=== PATIENT | female | born 1995 | race Caucasian/White ===

== ENCOUNTER 2017-06-21 06:18 | Emergency (ER) | END 2017-06-21 08:10 | disposition home or self-care (01) | DX: R06.4 Hyperventilation (principal); Z71.6 Tobacco abuse counseling; R11.0 Nausea; F41.8 Other specified anxiety disorders; E83.42 Hypomagnesemia; M15.0 Primary generalized (osteo)arthritis; I10 Essential (primary) hypertension; K21.9 Gastro-esophageal reflux disease without esophagitis; F17.210 Nicotine dependence, cigarettes, uncomplicated; Z79.899 Other long term (current) drug therapy | CPT/HCPCS: 36415; 74022; 80053; 80305; 82150; 83605; 83690; 83735; 84443; 84703; 85025; 85379; 96374; 99285; G0480; J2405; J7050 ==

== ENCOUNTER 2022-04-28 10:22 | Emergency (ER) | payer BC, MEDICAID ==
[2022-04-28 11:32] LABS: BENZODIAZEPINES SCREEN,URINE NEGATIVE (NEGATIVE); EDDP,URINE SCREEN NEGATIVE (NEGATIVE); TCA SCREEN,URINE NEGATIVE (NEGATIVE); THC SCREEN,URINE 50 NG/ML NEGATIVE (NEGATIVE)
[2022-04-28] MEDS ORDERED: Ketorolac 30 MG/ML SDV IM ONE (11:32)
[2022-04-28 11:50] LABS: BARBITURATE SCREEN,URINE NEGATIVE (NEGATIVE)
[2022-04-28 12:10] LABS: BUPRENORPHINE SCREEN,URINE NEGATIVE (NEGATIVE)
[2022-04-28] MEDS ORDERED: Acetaminophen 500 MG Tab PO ONE (12:14)
[2022-04-28 17:14] VITALS: BP 134/95; PULSE 70
== END 2022-04-28 13:50 | disposition home or self-care (01) ==
LOC: LL.ED 10:22
DX: S97.82XA Crushing injury of left foot, initial encounter (principal); I10 Essential (primary) hypertension; F17.210 Nicotine dependence, cigarettes, uncomplicated; E66.9 Obesity, unspecified; Z88.8 Allergy status to other drugs, medicaments and biological substances; Z68.31 Body mass index [BMI] 31.0-31.9, adult; W23.1XXA Caught, crushed, jammed, or pinched between stationary objects, initial encounter; Y99.0 Civilian activity done for income or pay
CPT/HCPCS: 73630-LT; 80305-QW; 96372; 99283; A9270-GY; J1885

== ENCOUNTER 2023-01-13 09:58 | Day surgery (SDC) | payer BC, OTHER ==
[~2023-01-13 09:58] MED LIST: Midazolam 1 MG/ML 2 ML SDV ONE; Propofol 200 MG/20 ML SDV ONE
[2023-01-13] MEDS ORDERED: Sodium Chloride 0.9% 10 ML Syringe FLUSH PRN (10:00)
[2023-01-13] MEDS ORDERED: Lactated Ringers 1,000 ML IV SCH (10:00)
[2023-01-13] MEDS ORDERED: Propofol 200 MG/20 ML SDV ONE (11:57)
[2023-01-13 13:44] VITALS: BP 124/83; PULSE 63
== END 2023-01-13 12:50 | disposition home or self-care (01) ==
LOC: LL.SDS 09:58
PROVIDERS: ATTEND Surgery
DX: K50.00 Crohn's disease of small intestine without complications (principal); K52.9 Noninfective gastroenteritis and colitis, unspecified; K62.89 Other specified diseases of anus and rectum; R79.82 Elevated C-reactive protein (CRP); I10 Essential (primary) hypertension; K21.9 Gastro-esophageal reflux disease without esophagitis; M54.9 Dorsalgia, unspecified; G89.29 Other chronic pain; M19.90 Unspecified osteoarthritis, unspecified site; E66.9 Obesity, unspecified; Z88.8 Allergy status to other drugs, medicaments and biological substances; Z79.899 Other long term (current) drug therapy; Z98.84 Bariatric surgery status
CPT/HCPCS: 00811; J2250; J2704; J7120